=== PATIENT | male | born 2000 | race Caucasian/White ===

== ENCOUNTER 2022-05-31 07:56 | Outpatient (CLI) | payer BC ==
[2022-05-31 08:56] LABS: #Basophils 0.1 10x3/uL (0.0-0.2); #Eosinphils 0.2 10x3/uL (0.0-0.5); %Basophils 0.8 % (0.0-2.0); %Eosinophils 2.4 % (0.0-6.0); %Lymphocytes 27.2 % (18.0-47.0); %Monocytes 11.2 % (0.0-10.0); %Neutrophils 58.2 % (40.0-75.0); Hemoglobin 16.8 g/dL (13.5-17.5); Mean Corpuscular HGB CONC 33.9 g/dL (32.0-36.0); Mean Corpuscular Hemoglobin 30.4 pg (27.0-33.0); Mean Corpuscular Volume 89.5 fl (81.2-95.1); Mean Platelet Volume 10.1 fl (7.4-10.4); Platelet Count 243 10x3/uL (150-450); RBC Distribution Width 12.8 % (11.5-14.5); Red Blood Cell (RBC) Count 5.53 10x6/uL (4.32-5.72); White Blood Cell (WBC) Count 8.5 10x3/uL (3.5-10.5)
[2022-05-31 09:11] LABS: Anion Gap 14 mmol/L (10-20); BUN (Urea Nitrogen) 21 mg/dL (8.9-20.6); Calc. Creatinine Clearance 0 mL/min (70-130); Calcium 9.4 mg/dL (7.8-10.44); Carbon Dioxide 25 mmol/L (22-29); Chloride 104 mmol/L (98-107); Estimated GFR 94; Glucose 75 mg/dL (70-105); Potassium 4.1 mmol/L (3.5-5.1); Sodium 139 mmol/L (136-145)
== END 2022-05-31 07:57 | disposition home or self-care (01) ==
LOC: LABBT 07:56
PROVIDERS: ATTEND Surgery
DX: Z01.812 Encounter for preprocedural laboratory examination (principal); N62 Hypertrophy of breast; Z20.822 Contact with and (suspected) exposure to COVID-19
CPT/HCPCS: 80048; 85025; 87811

== ENCOUNTER 2022-06-05 11:58 | Day surgery (SDC) | payer BC ==
[2022-06-04 10:22] VITALS: BMI 32.8
[2022-06-05] MEDS ORDERED: Lidocaine 1% w/Epinephrine 1:100K 20 ML VIAL ONE (15:36)
[2022-06-05] MEDS ORDERED: Bupivacaine 0.25% HCL 30 ML VIAL ONE (15:36)
[2022-06-05] MEDS ORDERED: fentaNYL Citrate/PF 100 MCG/2 ML SYRINGE ONE ×2 (15:46→15:51)
[2022-06-05] MEDS ORDERED: Sodium Chloride 0.9% 100 ML ONE (15:52)
[2022-06-05] MEDS ORDERED: HYDROmorphone 0.5 MG/0.5 ML SYRINGE ONE (15:52)
[2022-06-05] MEDS ORDERED: Midazolam HCl 2 mg/2 ml Vial ONE (15:52)
[2022-06-05] MEDS ORDERED: CEFAZOLIN 2 GM VIAL ONE (15:52)
[2022-06-05] MEDS ORDERED: PROPOFOL 200 MG/20 ML VIAL ONE (15:57)
[2022-06-05] MEDS ORDERED: Dexamethasone 20 MG/5 ML VIAL ONE (15:57)
[2022-06-05] MEDS ORDERED: Ondansetron PF 4 MG/2 ML Vial ONE (15:57)
[2022-06-05] MEDS ORDERED: Lidocaine 1% PF 5 ML VIAL ONE (15:57)
[2022-06-05] MEDS ORDERED: Ketamine 50 MG/ML (10ML VIAL) ONE (16:09)
== END 2022-06-05 19:00 | disposition home or self-care (01) ==
LOC: SDC 11:58
PROVIDERS: ATTEND Surgery
PROC: 0HBV0ZZ Excision of Bilateral Breast, Open Approach (ICD-10-PCS; principal; 2022-06-05)
DX: N62 Hypertrophy of breast (principal); F17.290 Nicotine dependence, other tobacco product, uncomplicated
CPT/HCPCS: 88305; J0690; J1100; J1170; J2250; J2405; J2704; J3490; S0020